=== PATIENT | female | born 1945 | race Caucasian/White ===

== ENCOUNTER → 2024-01-16 14:15 | Outpatient (REF) | payer OTHER, SELFPAY | LOC: RAD 14:15 | PROVIDERS: ATTENDING PHYSICIAN Family Medicine | DX: R07.81 Pleurodynia (principal) | CPT/HCPCS: 71101 ==

== ENCOUNTER → 2024-03-03 07:21 | Outpatient (REF) | payer OTHER, SELFPAY ==
[2024-03-03 08:31] LABS: Hematocrit 35.5 % (37.0-47.0); Hemoglobin 12.2 g/dL (12.0-16.0); Mean Corp Hgb Conc. 34.4 g/dL (33.0-37.0); Mean Corpuscular Hgb 30.7 pg (27.0-31.0); Mean Corpuscular Volume 89.4 fL (81.0-99.0); Mean Platelet Volume 8.5 fL (7.4-10.4); Platelet Count 226 10^3/uL (130-400); Red Blood Cell Count 3.97 10^6/uL (4.20-5.40); Red Cell Dist. Width 13.1 % (11.5-14.5); White Blood Cell Count 4.7 10^3/uL (4.8-10.8)
[2024-03-03 08:33] LABS: Urine Albumin Negative (Neg - Trace); Urine Bilirubin Negative (Negative); Urine Character Clear (Clear); Urine Color Yellow; Urine Glucose Negative (Negative); Urine Ketone Negative (Negative); Urine Leukocyte Negative (Negative); Urine Nitrite Negative (Negative); Urine Occult Blood Negative (Negative); Urine Specific Gravity 1.015 (<1.030); Urine Urobilinogen Negative (Neg - 1+)
[2024-03-03 08:58] LABS: ALT (SGPT) 22 U/L (0-35); AST (SGOT) 32 U/L (14-36); Albumin 4.3 g/dl (3.5-5.0); Alkaline Phosphatase 50 U/L (38-126); Blood Urea Nitrogen 15 mg/dl (7-17); Calcium 9.3 mg/dl (8.4-10.2); Carbon Dioxide 29 mmol/L (22-30); Chloride 103 mmol/L (98-107); Glucose 94 mg/dl (70-99); HDL Cholesterol 97 mg/dl; LDL Cholesterol, Calculated 81 mg/dl; Potassium 4.5 mmol/L (3.5-5.1); Sodium 142 mmol/L (135-145); Total Bilirubin 0.5 mg/dl (0.2-1.3); Total Cholesterol 193 mg/dl (50-199); Total Protein 7.6 g/dl (6.3-8.2); Triglyceride 76 mg/dl (10-149); Very Low Density Lipoprotein 15 mg/dl (0-30); eGFR > 60.00
[2024-03-03 09:15] LABS: Vitamin D, 25-OH*** 71.4 ng/mL (30-80)
[2024-03-03 09:28] LABS: TSH Reflex To Free T4 1.86 uIU/ml (0.47-4.68)
== END ==
LOC: REG 07:21
PROVIDERS: ATTENDING PHYSICIAN Family Medicine
DX: K21.9 Gastro-esophageal reflux disease without esophagitis (principal); E78.5 Hyperlipidemia, unspecified; I48.0 Paroxysmal atrial fibrillation; M81.0 Age-related osteoporosis without current pathological fracture; Z79.899 Other long term (current) drug therapy
CPT/HCPCS: 36415; 80053; 80061; 81003; 82306; 84443; 85027

== ENCOUNTER → 2024-03-19 09:28 | Outpatient (REF) | payer OTHER, SELFPAY ==
[2024-03-19 12:07] LABS: Iron 92 ug/dl (37-170)
[2024-03-19 12:16] LABS: Percent Saturation 32 % (20-50); Total Iron Binding Capacity 282 ug/dl (265-497)
[2024-03-19 12:44] LABS: Ferritin 38.5 ng/ml (11.1-264.0)
[2024-03-19 13:15] LABS: Folate > 20.0 ng/ml (2.76-20); Vitamin B12 863 pg/ml (239-931)
== END ==
LOC: REG 09:28
PROVIDERS: ATTENDING PHYSICIAN Family Medicine
DX: D64.9 Anemia, unspecified (principal)
CPT/HCPCS: 36415; 82607; 82728; 82746; 83540; 83550

== ENCOUNTER → 2024-03-30 09:56 | Outpatient (REF) | payer OTHER, SELFPAY ==
[2024-03-30 10:34] LABS: % Basophils 1.2 % (0-2); % Eosinophils 1.9 % (0-6); % Immature Granulocytes 0.2 % (0-0.5); % Lymphocytes 39.6 % (20.5-51.1); % Monocytes 9.2 % (1.7-9.3); % Neutrophils 47.9 % (42.2-75.2); Absolute Basophils 0.1 10^3/uL (0-0.2); Absolute Eosinophils 0.1 10^3/uL (0-0.7); Absolute Lymphocytes 1.7 10^3/uL (1.2-3.4); Absolute Monocytes 0.4 10^3/uL (0.1-0.6); Hematocrit 38.1 % (37.0-47.0); Hemoglobin 12.6 g/dL (12.0-16.0); Mean Corp Hgb Conc. 33.1 g/dL (33.0-37.0); Mean Corpuscular Hgb 31.3 pg (27.0-31.0); Mean Corpuscular Volume 94.5 fL (81.0-99.0); Mean Platelet Volume 8.3 fL (7.4-10.4); Nucleated Red Blood Cells % 0 %; Platelet Count 221 10^3/uL (130-400); Red Blood Cell Count 4.03 10^6/uL (4.20-5.40); Red Cell Dist. Width 13.1 % (11.5-14.5); White Blood Cell Count 4.2 10^3/uL (4.8-10.8)
[2024-03-30 11:46] LABS: Iron 95 ug/dl (37-170)
[2024-03-30 11:56] LABS: Percent Saturation 33 % (20-50); Total Iron Binding Capacity 286 ug/dl (265-497)
[2024-03-30 12:07] LABS: Ferritin 25.3 ng/ml (11.1-264.0)
== END ==
LOC: REG 09:56
PROVIDERS: ATTENDING PHYSICIAN Family Medicine
DX: D64.9 Anemia, unspecified (principal)
CPT/HCPCS: 36415; 82728; 83520; 83540; 83550; 85025

== ENCOUNTER → 2024-04-21 10:50 | Outpatient (REF) | payer OTHER, SELFPAY | LOC: REG 10:50 | PROVIDERS: ATTENDING PHYSICIAN Family Medicine | DX: S23.41XA Sprain of ribs, initial encounter (principal) | CPT/HCPCS: 71101 ==

== ENCOUNTER → 2024-10-13 12:19 | Outpatient (REF) | payer OTHER, SELFPAY | LOC: RAD 12:19 | PROVIDERS: ATTENDING PHYSICIAN Physician Assistant Medical; FAMILY PHYSICIAN Family Medicine | DX: M79.672 Pain in left foot (principal) | CPT/HCPCS: 73630 ==

== ENCOUNTER 2024-10-29 10:12 | Emergency (ER) | payer OTHER, SELFPAY ==
[2024-10-29 10:12] VITALS: BMI 22.3
[2024-10-29 10:19] VITALS: BP 145/74
[2024-10-29 11:26] VITALS: BMI 22.3
[2024-10-29 11:27] VITALS: BP 126/67
[2024-10-29] MEDS: LIDOCAINE 4% PATCH 1 PATCH TOPICAL (11:46)
[2024-10-29] MEDS: TYLENOL 1000 MG PO (11:47)
--- NOTE | 2024-10-29 12:22 | ED.GENMED ---
History of Present Illness
General
Chief Complaint: Back Pain
Source: patient and spouse
Exam Limitations: none
Time Seen by Provider: 10/29/24 11:02
Nursing documentation reviewed up to this point in time: agreed with
History of Present Illness
History of Present Illness:
78-year-old female with history of A-fib on Xarelto presents to the ER for evaluation of back pain. Patient was lifting her dog into the car to take it today that when she felt a 'pop' in her low back and had immediate pain. Came to the ER to be
evaluated. She reports pain in the lumbar region that is worse with movement. She feels it is mostly in the middle of the back slightly worse on the right side. She denies any radicular symptoms down the legs. She denies any numbness or weakness
in the legs. She denies any paresthesias. She denies any bowel bladder incontinence or saddle anesthesia. She denies any fall. She says that she did have similar back issue a few years ago after lifting a chair and had recently recovered before
today's incident.
Past History
Past History
ED Past Medical History: Arrthythmia (atrial fibrillation) and Other (polymyalgia rheumatica)
ED Past Surgical History: Gynecological (R oopherectomy)
Patient has exhibited threatening behavior?: No
PSI?: No
Social History
Tobacco: Non-smoker
Alcohol: None
Drug: None
Personal:
Living: with family
Review of Systems
Review of Systems
All Other Systems: ROS reviewed and negative except as documented in HPI and ROS
Musculoskeletal: Reports back pain
Neurological: Denies weakness or numbness
Phy Exam
Physical Exam
Physical Exam:
General: Awake, alert; no acute distress
Head: Normocephalic, atraumatic
Eyes: Conjunctiva normal, sclera anicteric
Throat: Airway intact, handling secretions
Neck: Trachea midline
Lungs: Breathing comfortably not distressed
Heart: Regular rate
Abd: Soft, non distended, nontender, no masses
Back: She has some midline tenderness L5-S1 as well as right paraspinal tenderness; she has reasonable range of motion on flexion extension, pain on rotation; she has a negative straight leg raise test bilaterally
Neuro: Cranial nerves grossly intact, speech fluid; motor and sensory is intact proximally distally in the lower extremities bilaterally
Skin: no rash in area of concern, no bruising
Extremities: Warm and well-perfused
Scores
Heart Failure Risk
Heart Failure Risk Score: Not Applicable
Heart Score for Chest Pain Patients
STEMI patient?: Not applicable
Withdrawal Assessment of Alcohol
Withdrawal Assessment Completed?: Not applicable
Course
Orders/Labs/Results
Orders:
Orders
10/29/24 11:26
Lumbar Spine, 2 or 3 View [CR Lumbar Spine 2 Or 3 Views] Urgent
Comment:
Reason For Exam: low back pain
10/29/24 11:44
Acetaminophen [Tylenol] 1,000 mg PO NOW STA
Lidocaine [Lidocaine 4% Patch] 1 patch TOPICAL ONCE ONE
Apply Lidocaine patch(s) to:: low back
Vital Signs
Initial and Last Documented VS:
Initial Vital Signs
Temp Pulse Resp BP Pulse Ox
36.7 C 64 16 145/74 97
10/29/24 10:19 10/29/24 10:19 10/29/24 10:19 10/29/24 10:19 10/29/24 10:19
Last Documented Vital Signs
Temp Pulse Resp BP Pulse Ox
36.7 C 68 16 126/67 98
10/29/24 10:19 10/29/24 12:00 10/29/24 12:00 10/29/24 11:27 10/29/24 12:24
MDM/Problems Addressed
Differential Diagnosis Includes:
Vertebral compression fracture, bulging/herniated disc, myofascial strain
MDM/Problems Addressed:
78-year-old female presents for evaluation of low back pain started after lifting her dog. No red flag symptoms or exam findings. Will check an x-ray given her age to rule out compression fracture. Treat symptomatically. Reassess after the above.
X-ray of the lumbar spine reviewed by me shows no compression fractures, degenerative disease but no acute pathology. Pain well-controlled here. Suspect likely myofascial strain. Stable for discharge can follow-up with primary doctor as an
outpatient. Patient comfortable with this plan. All questions answered.
*Radiology
Radiology exam reviewed: preliminary read by ED provider and radiology read reviewed
*Pulse Oximetry
SaO2: 98
Oxygen Mode of Delivery: Room air
Patient hypoxic: no (98%)
*Critical Care Note
Total Time (30-74mins, 75-104mins- exclusive of procedures): Not Applicable
Data Reviewed
Source: patient and spouse
ED Attending Note
-
Portions of this chart may have been created with voice recognition software.� Occasional wrong word or��sound alike� substitutions may have occurred due to the inherent limitations of voice recognition software.
Discharge Plan
Departure
Patient Disposition: Home (Routine Discharge)
Date of Disposition: 10/29/24
Time of Disposition: 12:31
Patient with high blood pressure during this ER visit?: No
Discharge Problem:
Low back pain
Instructions: Low Back Pain (DC)
Prescriptions:
New
tramadol 25 mg tablet
25 mg PO Q6H PRN (Reason: Pain) Qty: 10 0RF
No Action
cholecalciferol (vitamin D3) [Vitamin D3] 400 UNITS tablet
800 units PO DAILY
CalMag Thins 1 EACH tablet
2 ea PO BID
evening primrose oil 500 MG capsule
500 mg PO DAILY
ascorbic acid (vitamin C) [Vitamin C] 500 MG tablet
1,000 mg PO DAILY
vitamin B complex 1 TAB tablet
1 tab PO DAILY
glucosamine-chondroitin 1 EACH capsule
1 ea PO DAILY
Xarelto 20 MG tablet
20 mg PO QPM
metoprolol succinate 25 MG tablet extended release 24 hr
12.5 mg PO DAILY
clonazepam 0.5 mg Tablet
0.5 mg PO DAILY
Patient Comments:
01/23/2022: last filled 01/17/22, 30 tabs for 30 days from [facility]
acetaminophen 325 mg Tablet
650 mg PO Q4HPRN PRN (Reason: mild pain/FERNANDEZ/temp> 100.4F) Qty: 0 0RF
amoxicillin-pot clavulanate 875-125 mg tablet
1 tab PO Q12H Qty: 20 0RF
oxycodone 5 mg tablet
5 mg PO Q6H PRN (Reason: mod-severe pain) Qty: 7 0RF
Referrals:
Eunice Caicedo MD [Family Provider, [facility]] - Follow up in 5-7 days
Activity Restrictions/Additional Instructions:
Thank you for visiting the Emergency Department at [facility].
1. Please schedule a follow up appointment as directed. Call first thing tomorrow morning to make an appointment.
2. If indicated, please take your medications as instructed and indicated on discharge paperwork.
3. If any of your symptoms do not improve, or persist, or become more severe within 6-12 hours, please return to the emergency department for further care.
4. Please return to the emergency department if you develop a headache, neck pain/stiffness, fever greater than 100.4F, chest pain, shortness of breath, persistent nausea, vomiting, slurred speech, difficulty walking, numbness/tingling, weakness,
signs of infection or any other symptoms that are worrisome to you.
Please call [phone] if you have any questions.
Interventions
Interventions:
*Risk Screen - Suicide Last Done: 10/29/24 11:06
*General Assessment Last Done: 10/29/24 11:06
*Neglect/Abuse Screening Last Done: 10/29/24 10:23
*ED- Fall Risk Assessment Last Done: 10/29/24 11:06
ED-Musculoskeletal Assessment Last Done: 10/29/24 11:06
Discharge Date and Time
Print Language: CYMRAES
[2024-10-29] MEDS: ULTRAM 25 MG PO (12:36)
== END 2024-10-29 12:38 | disposition home or self-care (01) ==
LOC: EMR 10:12
PROVIDERS: EMERGENCY PHYSICIAN Emergency Medicine; FAMILY PHYSICIAN Family Medicine
DX: M54.50 Low back pain, unspecified (principal); I48.91 Unspecified atrial fibrillation; M35.3 Polymyalgia rheumatica; Z79.01 Long term (current) use of anticoagulants
CPT/HCPCS: 99283; 72100

== ENCOUNTER → 2025-02-13 10:03 | Outpatient (REF) | payer OTHER, SELFPAY | LOC: PAVMRI 10:03 | PROVIDERS: ATTENDING PHYSICIAN Physician Assistant; FAMILY PHYSICIAN Family Medicine | DX: M54.16 Radiculopathy, lumbar region (principal) | CPT/HCPCS: 72148 ==

== ENCOUNTER → 2025-04-07 11:07 | Outpatient (REF) | payer OTHER, SELFPAY | LOC: RAD 11:07 | PROVIDERS: ATTENDING PHYSICIAN Family Medicine | DX: S32.040D Wedge compression fracture of fourth lumbar vertebra, subsequent encounter for fracture with routine healing (principal); M81.0 Age-related osteoporosis without current pathological fracture | CPT/HCPCS: 77080 ==

== ENCOUNTER → 2025-05-10 07:43 | Outpatient (REF) | payer OTHER, SELFPAY ==
[2025-05-10 09:04] LABS: Hematocrit 40.9 % (37.0-47.0); Hemoglobin 13.7 g/dL (12.0-16.0); Mean Corp Hgb Conc. 33.5 g/dL (33.0-37.0); Mean Corpuscular Volume 92.5 fL (81.0-99.0); Nucleated Red Blood Cells % 0 %; Platelet Count 216 10^3/uL (130-400); Red Cell Dist. Width 13.2 % (11.5-14.5)
[2025-05-10 09:07] LABS: Urine Character Clear (Clear)
[2025-05-10 09:31] LABS: Urine Squamous Cell 0-2 /LPF (Few); Urine White Cell 0-2 /HPF (0-5)
[2025-05-10 09:50] LABS: ALT (SGPT) 18 U/L (0-35); AST (SGOT) 28 U/L (14-36); Albumin 4.2 g/dl (3.5-5.0); Alkaline Phosphatase 48 U/L (38-126); Blood Urea Nitrogen 14 mg/dl (7-17); Calcium 9.1 mg/dl (8.4-10.2); Carbon Dioxide 30 mmol/L (22-30); Chloride 104 mmol/L (98-107); Glucose 92 mg/dl (70-99); HDL Cholesterol 77 mg/dl; LDL Cholesterol, Calculated 107 mg/dl; Potassium 4.1 mmol/L (3.5-5.1); Sodium 139 mmol/L (135-145); Total Protein 7.7 g/dl (6.3-8.2); Very Low Density Lipoprotein 14 mg/dl (0-30); eGFR > 60.00
[2025-05-10 10:19] LABS: TSH 1.98 uIU/ml (0.47-4.68)
== END ==
LOC: REG 07:43
PROVIDERS: ATTENDING PHYSICIAN Family Medicine
DX: E78.5 Hyperlipidemia, unspecified (principal); I48.0 Paroxysmal atrial fibrillation; K21.9 Gastro-esophageal reflux disease without esophagitis; Z79.01 Long term (current) use of anticoagulants; Z79.899 Other long term (current) drug therapy; F41.1 Generalized anxiety disorder
CPT/HCPCS: 36415; 80053; 80061; 81003; 81015; 84439; 84443; 85025